=== PATIENT | male | born 1965 | race Caucasian/White ===

== ENCOUNTER 2017-06-21 03:38 | Emergency (ER) | payer SELFPAY ==
[2017-06-21 04:27] LABS: #Eosinphils 0.1 thou/uL (0.0-0.7); #Neutrophils 4.7 thou/uL (1.40-6.50); %Basophils 0.6 % (0.0-1.0); %Eosinophils 1.7 % (0.0-10.0); %Lymphocytes 25.4 % (21.0-51.0); %Monocytes 12.8 % (0.0-10.0); %Neutrophils 59.5 % (42.0-75.0); Hemoglobin 13.5 g/dL (14.0-18.0); Mean Corpuscular HGB CONC 33.6 g/dL (32.0-36.0); Mean Corpuscular Hemoglobin 31.2 pg (27.0-31.0); Mean Corpuscular Volume 92.8 fl (80.0-94.0); Mean Platelet Volume 6.2 fL (7.4-10.4); Platelet Count 323 thou/uL (130-400); RBC Distribution Width 12.5 % (11.5-14.5); Red Blood Cell (RBC) Count 4.33 mill/uL (4.70-6.10); White Blood Cell (WBC) Count 7.9 thou/uL (4.8-10.8)
[2017-06-21 04:28] LABS: ALT (SGPT) 70 U/L (8-55); AST (SGOT) 43 U/L (5-34); Albumin 3.8 g/dL (3.5-5.0); Alkaline Phosphatase 66 U/L (40-150); Anion Gap 11 mmol/L (10-20); BUN (Urea Nitrogen) 15 mg/dL (8.9-20.6); Bilirubin, Total 0.4 mg/dL (0.2-1.2); Calc. Creatinine Clearance 0 mL/min (70-130); Calcium 8.8 mg/dL (7.8-10.44); Carbon Dioxide 25 mmol/L (22-29); Chloride 107 mmol/L (98-107); Estimated GFR-MDRD 82; Globulin 2.9 g/dL (2.4-3.5); Glucose 169 mg/dL (70-105); Potassium 3.4 mmol/L (3.5-5.1); Protein, Total 6.7 g/dL (6.0-8.3); Sodium 140 mmol/L (136-145)
[2017-06-21 04:30] LABS: Bilirubin Negative (Negative); Blood, Urine Negative (Negative); Clarity CLEAR (Clear); Glucose, Urine (Dipstick) 250 mg/dL (Negative); Leukocyte Negative (Negative); Nitrite Negative (Negative); Protein, Urine (Dipstick) Negative (Neg-Trace); Specific Gravity, Urine 1.021 (1.002-1.036)
[2017-06-21] MEDS ORDERED: Morphine 4 MG/ML Carpuject ONE (04:55)
[2017-06-21] MEDS ORDERED: Ketorolac Tromethamine 30 MG/ML VIAL ONE (05:01)
--- NOTE | 2017-06-21 09:32 | CT ---
PRELIMINARY REPORT/[facility]/EMERGENCY AFTER HOURS PROCEDURE: EXAM: CT Abdomen and Pelvis With Intravenous Contrast EXAM DATE/TIME: Exam ordered 06/21/2017 4:22 AM CLINICAL HISTORY: 52 years old, male; Pain; Abdominal pain; Localized; Right lower quadrant (rlq); Patient HX: Pt C/O r lq pain ongoing for 3 days. Denies nausea or vomiting. TECHNIQUE: Axial computed tomography images of the abdomen and pelvis with intravenous contrast. Coronal reformatted images were created and reviewed. CONTRAST: 95 mL of ISOVUE 370 administered intravenously. COMPARISON: No relevant prior studies available. FINDINGS: Lower thorax: There is subpleural atelectasis of the dependent portions of the lungs. ABDOMEN: Liver: There is a focal right liver lobe hypodensity that cannot be further characterized on the curr ent examination. Gallbladder and bile ducts: The gallbladder is normal. There is no evidence of biliary ductal dilatio n. No calcified stones. Pancreas: The pancreas is normal. No ductal dilation. Spleen: The spleen is normal. Adrenals: The adrenal glands are normal. Kidneys and ureters: There is a 5 x 5 x 8 mm proximal RIGHT ureteral obstructing calculus with associ ated moderate RIGHT hydronephrosis. There is a focal renal hypodensity that cannot be further charact erized on the current examination. The left kidney is normal. Stomach and bowel: The stomach is normal. The duodenum is unremarkable. Mild diverticulosis is presen t in the sigmoid and descending colon. The colon is normal. No obstruction. No mucosal thickening. Appendix: A normal appendix is identified. PELVIS: Bladder: The bladder is decompressed but otherwise normal. Reproductive: The prostate gland and seminal vesicles are normal. ABDOMEN and PELVIS: Intraperitoneal space: Normal. No free air. No significant fluid collection. Bones/joints: No acute fracture. No dislocation. Soft tissues: Normal. Vasculature: Normal. No abdominal aortic aneurysm. Lymph nodes: Normal. No enlarged lymph nodes. IMPRESSION: There is a 5 x 5 x 8 mm proximal RIGHT ureteral obstructing calculus with associated moderate RIGHT h ydronephrosis. Thank you for allowing us to participate in the care of your patient. Dictated and Authenticated by: Gregory Jackman MD 06/21/2017 4:54 AM Central Time ([place] & [place]) FINAL REPORT CT ABDOMEN AND PELVIS WITH IV CONTRAST: Date: 1-16-18 Performed on emergency basis at 0423 hours. History: Right abdominal pain. FINDINGS: No comparison. The findings agree with the preliminary report by Dr. Cordero from [facility]. Th ere is partial obstruction of the proximal right ureter with a 0.8 cm calculus. Tiny nonobstructing l eft renal calculus is also present. Small irregularly shaped low density lesion within the posterior dome of the liver is incompletely evaluated and may represent a hemangioma. Code QA POS: SJ
[2017-06-21] MEDS ORDERED: ISOVUE-370 76%-LOCM 1 ML ONE (15:56)
== END 2017-06-21 06:45 | disposition home or self-care (01) ==
LOC: ERS 03:38
DX: N13.2 Hydronephrosis with renal and ureteral calculous obstruction (principal); F17.210 Nicotine dependence, cigarettes, uncomplicated; Z71.6 Tobacco abuse counseling
CPT/HCPCS: 36415; 74177; 80053; 81003; 85025; 96374; 96375; 99406; J1885; J2270